=== PATIENT | male | born 1975 | race Caucasian/White ===

== ENCOUNTER → 2017-07-10 | Outpatient (CLI) | payer OTHER ==
[~2017-07-10] MED LIST: LEVO250T11 PO; PHEN-640 PO
--- NOTE | 2017-07-10 10:36 | Diagnostic Imaging Report ---
PROCEDURE: MRI right joint upper extremity without contrast. TECHNIQUE: Multiplanar, multisequence non contrast-enhanced MRI of the right upper extremity was accomplished. INDICATION: Right elbow pain after the patient was helping push a car and felt a tear near the right elbow. FINDINGS: There is soft tissue edema in the anterior medial aspect of the elbow region and along the expected location of the biceps tendon distally. The tendon is retracted about 8.2 cm from a full-thickness tear of its insertion. Edema along the tract and near the insertion site of the proximal radius is noted. No significant bone marrow edema is seen however. The brachialis muscle and tendon appear normal. The muscle bulk and signal including the biceps itself is normal. The quadriceps muscle and tendon appear normal. The origin of the extensor tendons at the lateral epicondyle demonstrates mild thickening and increased signal compatible with lateral epicondylitis. The origin of the common flexor tendons is normal. The collateral ligaments around the elbow appear normal. There is no elbow effusion. No bursal distention in the olecranon bursa. IMPRESSION: 1. Full-thickness tear of the distal biceps tendon with retraction of the tendon stump at about 8 cm from the insertion point. 2. 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 Dictated by: Dictated on workstation # [id number]
== END ==
LOC: RAD 09:01
PROVIDERS: ATTEND Nurse Practitioner
DX: S46.211A Strain of muscle, fascia and tendon of other parts of biceps, right arm, initial encounter (principal); X58.XXXA Exposure to other specified factors, initial encounter; Y99.8 Other external cause status
CPT/HCPCS: 73221

== ENCOUNTER → 2020-02-04 | Outpatient (CLI) | payer OTHER | LOC: CARD 08:32 | PROVIDERS: ATTEND Internal Medicine Interventional Cardiology | DX: R07.2 Precordial pain (principal); R00.2 Palpitations | CPT/HCPCS: 93017; 93306 ==